=== PATIENT | male | born 1945 ===

== ENCOUNTER 2020-01-17 17:38 | Inpatient (IN) ==
[2020-01-17] MEDS ORDERED: Ibuprofen 800 MG TABLET PO ONE (18:39)
[2020-01-17] MEDS ORDERED: Aspirin 325 MG TABLET PO ONE (19:12)
[2020-01-17 19:45] LABS: Basophils # 0.1 K/mcL (0.0-0.2); Basophils % 0.9 %; Eosinophils # 0.8 K/mcL (0.0-0.6); Eosinophils % 8.8 %; Hematocrit 54.2 % (37.5-50.1); Immature Granulocytes % 0.7 % (0-4); Lymphocytes % 22.4 %; Mean Corpuscular HGB Conc 33.2 g/dL (31.6-35.5); Mean Corpuscular Hemoglobin 31.7 pg (28.0-33.3); Mean Corpuscular Volume 95.4 fL (83.0-100.0); Monocytes # 0.7 K/mcL (0.0-1.3); Monocytes % 7.2 %; Neutrophils # 5.4 K/mcL (1.6-8.9); Platelet Count 146 K/mcL (140-400); Red Blood Count 5.68 M/mcL (4.19-5.50); Red Cell Distribution Width 14.8 % (11.5-14.5)
[2020-01-17 20:00] LABS: BUN/Creatinine Ratio 20 (6-26); Blood Urea Nitrogen 28 mg/dL (8-23); Calcium 10.5 mg/dL (8.6-10.3); Carbon Dioxide 23 mEq/L (23-29); Chloride 105 mEq/L (98-107); Glucose 74 mg/dL (70-105); Osmolality,Calculated 288 (280-300); Potassium 4.2 mEq/L (3.5-5.1); Sodium 137 mEq/L (136-145); eGFR For African Americans > 60 (> 60); eGFR For Non-African Americans 50 (> 60)
[2020-01-17] MEDS ORDERED: 0.9 % Sodium Chloride 1,000 ML IVC ONE (20:11)
[2020-01-17] MEDS ORDERED: ceFAZolin 1,000 MG in Water for inj. (sterile) 10 ML IVP ONE (20:15)
[2020-01-17] MEDS ORDERED: *HR* Promethazine 25 MG/ML VIAL IVP PRN (21:28)
[2020-01-17] MEDS ORDERED: Naloxone 0.4 MG/ML INJ IVP PRN ×2 (21:28→21:35)
[2020-01-17] MEDS ORDERED: diazePAM 2 MG TABLET PO PRN (22:45)
[2020-01-17] MEDS: Clindamycin 600 MG/50 ML 600 MG/50 ML IV.SOLN IVPB SCH (23:26)
[2020-01-17] MEDS: *HR* OxyCODONE Immed Rel 5 MG TABLET PO PRN (23:26)
[2020-01-17] MEDS: *HR* Heparin 5,000 UNIT/ML VIAL SQ SCH (23:26)
[2020-01-17] MEDS: 0.9 % Sodium Chloride 1,000 ML IVC SCH (23:26)
[2020-01-18] MEDS: *HR* Heparin 5,000 UNIT/ML VIAL SQ SCH (05:27)
[2020-01-18 06:44] LABS: Basophils # 0.1 K/mcL (0.0-0.2); Basophils % 1.2 %; Eosinophils # 0.9 K/mcL (0.0-0.6); Eosinophils % 10.3 %; Immature Granulocytes % 0.6 % (0-4); Lymphocytes # 2.2 K/mcL (0.6-4.6); Lymphocytes % 25.4 %; Mean Corpuscular HGB Conc 32.9 g/dL (31.6-35.5); Mean Corpuscular Hemoglobin 31.8 pg (28.0-33.3); Mean Corpuscular Volume 96.8 fL (83.0-100.0); Mean Platelet Volume 10.7 fL (9.4-12.4); Monocytes # 0.6 K/mcL (0.0-1.3); Monocytes % 7.5 %; Neutrophils # 4.7 K/mcL (1.6-8.9); Platelet Count 131 K/mcL (140-400); Red Blood Count 5.06 M/mcL (4.19-5.50); Red Cell Distribution Width 14.9 % (11.5-14.5); White Blood Count 8.6 K/mcL (4.3-11.1)
[2020-01-18 06:45] LABS: Hemoglobin 16.1 g/dL (12.9-16.9)
[2020-01-18 06:48] LABS: INR 1.1; Prothrombin Time 12.3 Seconds (9.4-12.1)
[2020-01-18 07:09] LABS: BUN/Creatinine Ratio 19 (6-26); Blood Urea Nitrogen 26 mg/dL (8-23); Calcium 9.6 mg/dL (8.6-10.3); Carbon Dioxide 24 mEq/L (23-29); Chloride 108 mEq/L (98-107); Glucose 98 mg/dL (70-105); Magnesium 2.1 mg/dL (1.6-2.6); Osmolality,Calculated 297 (280-300); Phosphorous 2.7 mg/dL (2.7-4.5); Potassium 4.1 mEq/L (3.5-5.1); Sodium 141 mEq/L (136-145); eGFR For African Americans > 60 (> 60); eGFR For Non-African Americans 50 (> 60)
[2020-01-18] MEDS: 0.9 % Sodium Chloride 1,000 ML IVC SCH (08:09)
[2020-01-18] MEDS: Clindamycin 600 MG/50 ML 600 MG/50 ML IV.SOLN IVPB SCH (08:10)
[2020-01-18] MEDS: Cyanocobalamin (B-12) 1,000 MCG TABLET PO SCH (08:11)
[2020-01-18] MEDS: *HR* OxyCODONE Immed Rel 5 MG TABLET PO PRN ×2 (08:13→21:26)
[2020-01-18] MEDS: CAFFEINE PO SCH ×3 (08:56→20:40)
[2020-01-18] MEDS: ASPIRIN PO SCH ×3 (08:56→20:40)
[2020-01-18] MEDS ORDERED: cefTRIAXone 1,000 MG in 0.9 % Sodium Chloride Mini Bag 100 ML IVPB SCH (09:00)
[2020-01-18] MEDS ORDERED: *HR* Heparin 5,000 UNIT/ML VIAL IVP ONE (09:30)
[2020-01-18] MEDS ORDERED: *HR* Heparin 5,000 UNIT/ML VIAL IVP PRN ×2 (09:30)
[2020-01-18] MEDS ORDERED: Heparin 25,000 UNIT/250 ML D5W 25,000 UNIT/250 ML IV.SOLN IVC SCH (09:30)
[2020-01-18 12:15] LABS: C-Reactive Protein 9 mg/L (Less than 10)
[2020-01-18] MEDS ORDERED: Aluminum Hydroxide 15 ML UDC PO PRN (17:03)
[2020-01-18] MEDS ORDERED: Mag Hydrox/Al Hydrox/Simeth 30 ML UDC PO PRN (17:45)
[2020-01-18] MEDS ORDERED: diazePAM 5 MG TABLET PO PRN (21:10)
[2020-01-19 00:37] LABS: Basophils # 0.1 K/mcL (0.0-0.2); Basophils % 1.1 %; Eosinophils # 0.8 K/mcL (0.0-0.6); Eosinophils % 11.4 %; Hematocrit 45.2 % (37.5-50.1); Immature Granulocytes % 0.4 % (0-4); Lymphocytes # 1.9 K/mcL (0.6-4.6); Lymphocytes % 26.7 %; Mean Corpuscular HGB Conc 33.2 g/dL (31.6-35.5); Mean Corpuscular Hemoglobin 31.6 pg (28.0-33.3); Mean Corpuscular Volume 95.4 fL (83.0-100.0); Mean Platelet Volume 9.8 fL (9.4-12.4); Monocytes # 0.5 K/mcL (0.0-1.3); Monocytes % 6.7 %; Neutrophils # 3.9 K/mcL (1.6-8.9); Platelet Count 136 K/mcL (140-400); Red Blood Count 4.74 M/mcL (4.19-5.50); Red Cell Distribution Width 14.6 % (11.5-14.5); Segmented Neutrophils % 53.7 %; White Blood Count 7.2 K/mcL (4.3-11.1)
[2020-01-19 00:55] LABS: BUN/Creatinine Ratio 21 (6-26); Blood Urea Nitrogen 23 mg/dL (8-23); Calcium 9.4 mg/dL (8.6-10.3); Carbon Dioxide 21 mEq/L (23-29); Chloride 107 mEq/L (98-107); Glucose 113 mg/dL (70-105); Osmolality,Calculated 284 (280-300); Potassium 4.1 mEq/L (3.5-5.1); Sodium 135 mEq/L (136-145); eGFR For African Americans > 60 (> 60); eGFR For Non-African Americans > 60 (> 60)
[2020-01-19] MEDS: *HR* OxyCODONE Immed Rel 5 MG TABLET PO PRN (04:00)
[2020-01-19 06:37] VITALS: BP 119/69
[2020-01-19] MEDS: ASPIRIN PO SCH (08:09)
[2020-01-19] MEDS: Cyanocobalamin (B-12) 1,000 MCG TABLET PO SCH (08:09)
[2020-01-19] MEDS: CAFFEINE PO SCH (08:09)
[2020-01-19] MEDS ORDERED: Acetaminophen/Butalbital/CaffeineTABLET PO PRN (09:28)
== END 2020-01-19 12:10 | disposition home or self-care (01) | DRG 301 ==
LOC: EMEROOARM 17:38 → 3BNU 17:38 → SUATTDRO 21:05 → 3BNU 21:58
PROVIDERS: ADMIT Student in an Organized Health Care Education/Training Program; ATTEND Internal Medicine